=== PATIENT | male | born 1965 | race Caucasian/White ===

== ENCOUNTER 2016-09-19 15:10 | Emergency (ER) | payer OTHER ==
[~2016-09-19] VITALS: Ht 182.9 cm; Wt 90.7 kg
[~2016-09-19 15:10] MED LIST: IBUP-1619 PO; METH5TAB2 PO; QUET400T PO
[2016-09-19 15:18] VITALS: BP 114/77
== END 2016-09-19 15:38 | disposition home or self-care (01) ==
LOC: ER 15:12
DX: R21 Rash and other nonspecific skin eruption (principal); F20.9 Schizophrenia, unspecified; F17.200 Nicotine dependence, unspecified, uncomplicated; I10 Essential (primary) hypertension
CPT/HCPCS: 99283; A4606; Z7610

== ENCOUNTER 2016-09-27 08:05 | Emergency (ER) | payer OTHER ==
[~2016-09-27] VITALS: Ht 182.9 cm; Wt 95.3 kg
[2016-09-27 08:05] VITALS: BP 160/96
== END 2016-09-27 09:00 | disposition home or self-care (01) ==
LOC: ER 08:06
DX: Z48.00 Encounter for change or removal of nonsurgical wound dressing (principal); F20.9 Schizophrenia, unspecified; F17.200 Nicotine dependence, unspecified, uncomplicated; I10 Essential (primary) hypertension
CPT/HCPCS: A4606; Z7502; Z7610

== ENCOUNTER 2016-09-28 16:32 | Emergency (ER) | payer OTHER ==
[~2016-09-28] VITALS: Ht 177.8 cm; Wt 95.3 kg
[2016-09-28 16:36] VITALS: BP 133/79
== END 2016-09-28 17:40 | disposition left against medical advice (07) ==
LOC: ER 16:34
DX: S61.402D Unspecified open wound of left hand, subsequent encounter (principal); S61.401D Unspecified open wound of right hand, subsequent encounter; I10 Essential (primary) hypertension; F20.9 Schizophrenia, unspecified; F17.200 Nicotine dependence, unspecified, uncomplicated; Z59.0 Homelessness; X58.XXXD Exposure to other specified factors, subsequent encounter
CPT/HCPCS: A4606; Z7502; Z7610

== ENCOUNTER 2016-10-28 20:10 | Emergency (ER) | payer OTHER ==
[~2016-10-28] VITALS: Ht 185.4 cm; Wt 99.8 kg
--- NOTE | 2016-10-28 20:22 | NUR ---
CALLED PT IN [place], NO REPONSE
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
--- NOTE | 2016-10-28 23:10 | NUR ---
DR THOMAS AT BEDSIDE FOR EVAL.
[2016-10-28] MEDS ORDERED: IBUPROFEN 600 MG TABLET PO ONE ×2 (23:30→23:38)
--- NOTE | 2016-10-29 01:01 | NUR ---
Emery melchor in ED - 10/29/16 at 0102 by FEDER[place] Patient eloped from [facility]. DARION BEAVER notified.
--- NOTE | 2016-10-29 01:02 | NUR ---
PATIENT LEFT WITHOUT DC PAPER WORK. NAD NOTED,
[2016-10-29 01:05] VITALS: BP 132/77
== END 2016-10-29 01:05 | disposition home or self-care (01) ==
LOC: ER 20:14
DX: S20.212A Contusion of left front wall of thorax, initial encounter (principal); I10 Essential (primary) hypertension; F20.9 Schizophrenia, unspecified; F17.210 Nicotine dependence, cigarettes, uncomplicated; X58.XXXA Exposure to other specified factors, initial encounter; Y92.89 Other specified places as the place of occurrence of the external cause; Y93.89 Activity, other specified; Y99.8 Other external cause status
CPT/HCPCS: 71020; 99284; A4606; Z7610

== ENCOUNTER 2016-11-21 19:25 | Emergency (ER) | payer OTHER ==
[~2016-11-21] VITALS: Ht 175.3 cm; Wt 65.8 kg
[2016-11-21 20:03] VITALS: BP 160/98
[2016-11-21] MEDS ORDERED: QUETIAPINE FUMARATE 100 MG TABLET PO SCH (20:30)
== END 2016-11-21 20:30 | disposition home or self-care (01) ==
LOC: ER 19:28
DX: Z76.0 Encounter for issue of repeat prescription (principal); F20.9 Schizophrenia, unspecified; I10 Essential (primary) hypertension; F17.200 Nicotine dependence, unspecified, uncomplicated
CPT/HCPCS: A4606; Z7610

== ENCOUNTER 2016-11-25 23:03 | Emergency (ER) | payer OTHER ==
[~2016-11-25] VITALS: Ht 185.4 cm; Wt 104.3 kg
[2016-11-25 23:16] VITALS: BP 154/91
[2016-11-26] MEDS ORDERED: HYDROCODONE/APAP 5/325MG 1 EACH TABLET ONE (00:59)
[2016-11-26] MEDS ORDERED: HYDROCODONE/APAP 5/325MG 1 EACH TABLET PO ONE (01:00)
[2016-11-26] MEDS ORDERED: QUETIAPINE FUMARATE 100 MG TABLET PO SCH (01:00)
[2016-11-26] MEDS ORDERED: QUETIAPINE FUMARATE 100 MG TABLET ONE ×2 (01:03→01:07)
[2016-11-26] MEDS ORDERED: HYDROMORPHONE INJ 2 MG/ML DISP.SYRIN ONE (01:09)
--- NOTE | 2016-11-26 01:30 | NUR ---
DILAUDID 2 MG IV NON-ADMINISTERED. WRONG PYXIS REMOVAL (MEDICATION WAS INTENDED FOR ANOTHER PT). MEDICATION WASTED, CREDITED & WITNESSED. WENDY FERNANDEZ MADE AWARE.
--- NOTE | 2016-11-26 01:30 | NUR ---
SEROQUEL ORDERED ON PT. ED PYXIS DOES NOT CARRY SEROQUEL 400 MG, WENT TO [facility] TO GET MEDICATION FOR PT. REBECCA TREVIÑO ACCIDENTLY PULLED DILAUDID 2 MG IV. REBECCA TREVIÑO NOTIFIED ABOUT ACCIDENTAL PULL FROM [facility] PYXIS
== END 2016-11-26 01:38 | disposition home or self-care (01) ==
LOC: ER 23:04
DX: F20.9 Schizophrenia, unspecified (principal); I10 Essential (primary) hypertension; F17.200 Nicotine dependence, unspecified, uncomplicated
CPT/HCPCS: 99283; 99406; A4606; Z7610; J1170

== ENCOUNTER 2016-11-27 12:13 | Emergency (ER) | payer OTHER ==
[~2016-11-27] VITALS: Ht 182.9 cm; Wt 127.0 kg
[2016-11-27 12:19] VITALS: BP 145/82
== END 2016-11-27 12:37 | disposition home or self-care (01) ==
LOC: ER 12:16
DX: H66.91 Otitis media, unspecified, right ear (principal); I10 Essential (primary) hypertension; F20.9 Schizophrenia, unspecified; F17.200 Nicotine dependence, unspecified, uncomplicated
CPT/HCPCS: 99283; A4606; Z7610

== ENCOUNTER 2016-12-25 14:57 | Emergency (ER) | payer OTHER ==
[~2016-12-25] VITALS: Ht 182.9 cm; Wt 104.3 kg
[2016-12-25 15:14] VITALS: BP 112/81
== END 2016-12-25 16:23 | disposition home or self-care (01) ==
LOC: ER 15:01
DX: Z76.0 Encounter for issue of repeat prescription (principal); I10 Essential (primary) hypertension; F20.9 Schizophrenia, unspecified; F17.200 Nicotine dependence, unspecified, uncomplicated; Z59.0 Homelessness; Z48.00 Encounter for change or removal of nonsurgical wound dressing
CPT/HCPCS: 99283; A4606; Z7610

== ENCOUNTER 2017-01-10 10:29 | Emergency (ER) | payer OTHER ==
[~2017-01-10] VITALS: Ht 182.9 cm; Wt 104.3 kg
--- NOTE | 2017-01-10 10:29 | NUR ---
[facility] to ER for medical and psych clearance . ADMITS USING [facility] TODAY. PLACED ON MONITOR. AYLIN GALLEGOS VSS. AWAITING MD ORDER
[2017-01-10] MEDS ORDERED: OLANZAPINE 10 MG VIAL IM ONE ×2 (10:36→11:00)
--- NOTE | 2017-01-10 11:20 | NUR ---
PUMP TECHNICIAN AT BEDSIDE BLOOD SAMPLE COLLECTED
--- NOTE | 2017-01-10 11:33 | NUR ---
URINE SAMPLE COLLECTED SENT TO LAB
[2017-01-10 11:34] LABS: BASOPHILS % (AUTO) 0.3 % (0.0-2.0); EOSINOPHILS % (AUTO) 0.3 % (0.0-6.0); HEMATOCRIT 36 % (39-51); HEMOGLOBIN 12.7 g/dL (13.5-17.5); LYMPHOCYTES % (AUTO) 26.9 % (20.0-44.0); MEAN CORPUSCULAR HEMOGLOBIN 33 PG (26.0-33.0); MEAN CORPUSCULAR HGB CONC 35 g/dl (31.0-36.0); MEAN CORPUSCULAR VOLUME 95 fL (80-96); MONOCYTES # (AUTO) 0.3 /CMM (0.1-1.30); MONOCYTES % (AUTO) 7.8 % (2.0-12.0); NEUTROPHILS # (AUTO) 2.3 /CMM (1.8-8.9); NEUTROPHILS % (AUTO) 64.7 % (43.0-81.0); PLATELET COUNT (AUTO) 122 /CMM (150-450); RED BLOOD CELL COUNT(AUTO) 3.85 MIL/uL (4.5-6.0); WHITE BLOOD COUNT (AUTO) 3.6 K/uL (4.3-11.0)
[2017-01-10 11:39] LABS: BILIRUBIN,URINE SMALL (NEGATIVE); BLOOD, URINE Negative Ery/uL (NEGATIVE); KETONES,URINE Negative (NEGATIVE); LEUKOCYTE ESTERASE ,URINE Negative (NEGATIVE); NITRITE, URINE Negative (NEGATIVE); PH,URINE 6.5 (5.0-8.0); PROTEIN,URINE 30 mg/dl (NEGATIVE); UGLUCOSE Negative (NEGATIVE)
[2017-01-10 11:42] LABS: APPEARANCE,URINE Hazy (CLEAR); COLOR,URINE Dark Yellow (YELLOW)
[2017-01-10 11:46] LABS: CALCIUM, SERUM 9.1 mg/dL (8.5-10.1); CARBON DIOXIDE 28 mmol/L (21-32); CHLORIDE 105 mmol/L (98-107); CREATININE 0.9 mg/dL (0.6-1.3); GLUCOSE 111 mg/dL (74-106); POTASSIUM 4.2 mmol/L (3.5-5.1); SODIUM SERUM 140 mmol/L (136-145); UREA NITROGEN, BLOOD 18 mg/dL (7-18)
[2017-01-10 11:51] LABS: BACTERIA,URINE None seen /HPF (None Seen); MUCUS,URINE Few /LPF (None Seen); SPERM,URINE Present /HPF (None Seen); SQUAMOUS EPITHELIAL CELL,UR Few /HPF (None Seen)
[2017-01-10 11:51] LABS: ALANINE AMINOTRANSFERASE 19 U/L (12-78); ALBUMIN 4.1 g/dL (3.4-5.0); ALCOHOL, BLOOD < 3 mg/dL (0-0); ALKALINE PHOSPHATASE 56 U/L (46-116); ASPARTATE AMINOTRANSFERASE 20 U/L (15-37); BILIRUBIN,DIRECT 0.2 mg/dL (0.0-0.2); BILIRUBIN,TOTAL 0.7 mg/dL (0.2-1.0); SALICYLATE 6.1 mg/dL (2.8-20.0); TOTAL PROTEIN, SERUM 7.6 g/dL (6.4-8.2)
[2017-01-10 11:52] LABS: ACETAMINOPHEN 0 ug/ml (10-30)
[2017-01-10] MEDS ORDERED: HALOPERIDOL LACTATE INJ 5 MG/ML VIAL ONE (11:58)
[2017-01-10] MEDS ORDERED: LORAZEPAM INJ 2 MG/ML VIAL ONE (11:59)
--- NOTE | 2017-01-10 12:00 | NUR ---
CALLED JESSICA FOR PSYCH EVAL, ETA WITHIN THE HOUR
[2017-01-10] MEDS ORDERED: HALOPERIDOL LACTATE INJ 5 MG/ML VIAL IM ONE (12:30)
[2017-01-10] MEDS ORDERED: LORAZEPAM INJ 2 MG/ML VIAL IM ONE (12:30)
--- NOTE | 2017-01-10 13:38 | NUR ---
PT SEEN AND EVALUATED BY JESSICA FERNANDEZ PET TEAM BIOPHYSICS TEACHER
[2017-01-10 13:39] VITALS: BP 158/100
--- NOTE | 2017-01-10 13:39 | NUR ---
PT. VERBALIZED UNDERSTANDING OF AFTERCARE INSTRUCTIONS.Patient discharged to home in stable condition. Written and verbal after care instructions given. Patient verbalizes understanding of instruction.(pt. ambulatory with a steady gait
== END 2017-01-10 13:40 | disposition home or self-care (01) ==
LOC: ER 10:31
DX: F15.10 Other stimulant abuse, uncomplicated (principal); F20.9 Schizophrenia, unspecified; F29 Unspecified psychosis not due to a substance or known physiological condition; S61.409A Unspecified open wound of unspecified hand, initial encounter; K46.9 Unspecified abdominal hernia without obstruction or gangrene; G89.29 Other chronic pain; I10 Essential (primary) hypertension; F17.200 Nicotine dependence, unspecified, uncomplicated; Z59.0 Homelessness; X58.XXXA Exposure to other specified factors, initial encounter; Y93.89 Activity, other specified; Y92.89 Other specified places as the place of occurrence of the external cause; Y99.8 Other external cause status
CPT/HCPCS: 36415; 80048; 80076; 80305; 80329; 81001; 85025; 96372 ×3; 99284; A4606; G0480 ×2; J1630; J2060; J3490; Z7610; 81000-TC

== ENCOUNTER 2017-08-11 09:34 | Emergency (ER) | payer OTHER ==
[~2017-08-11] VITALS: Ht 185.4 cm; Wt 74.8 kg
[~2017-08-11 09:34] MED LIST changes: -IBUP-1619 PO; +IBUP-2269 PO
[2017-08-11 10:20] LABS: APPEARANCE,URINE Cloudy (CLEAR); BILIRUBIN,URINE SMALL (NEGATIVE); BLOOD, URINE Negative Ery/uL (NEGATIVE); KETONES,URINE Trace (NEGATIVE); LEUKOCYTE ESTERASE ,URINE Trace (NEGATIVE); NITRITE, URINE Negative (NEGATIVE); PROTEIN,URINE Trace mg/dl (NEGATIVE); UGLUCOSE Negative (NEGATIVE)
[2017-08-11 10:22] LABS: COLOR,URINE Dark Yellow (YELLOW)
[2017-08-11 10:29] LABS: BACTERIA,URINE None seen /HPF (None Seen); RBC,URINE 0-2 /HPF (0-2); SQUAMOUS EPITHELIAL CELL,UR Few /HPF (None Seen); WBC,URINE 0-3 /HPF (0-3)
[2017-08-11 10:30] LABS: URINE AMORPHOUS PHOSPHATES Many /HPF (None Seen)
[2017-08-11 10:59] VITALS: BP 123/80
== END 2017-08-11 11:04 ==
LOC: ER 09:38
DX: R30.0 Dysuria (principal); L98.8 Other specified disorders of the skin and subcutaneous tissue; G89.29 Other chronic pain; I10 Essential (primary) hypertension; F20.9 Schizophrenia, unspecified; F17.200 Nicotine dependence, unspecified, uncomplicated; Z59.0 Homelessness; Z86.19 Personal history of other infectious and parasitic diseases
CPT/HCPCS: 81001; 99283; A4606; A6402; A6403; Z7610; 81000-TC

== ENCOUNTER 2018-11-07 20:02 | Emergency (ER) | payer OTHER ==
--- NOTE | 2018-11-07 20:20 | NUR ---
CALLED PT'S NAME THREE TIMES, NO REPONSE. WILL TRY AGAIN AT A LATER TIME
--- NOTE | 2018-11-07 20:49 | NUR ---
CALLED PT'S NAME THREE TIMES, NO REPONSE. WILL TRY AGAIN AT A LATER TIME
--- NOTE | 2018-11-07 21:01 | NUR ---
CALLED PTS NAME, NO RESPONSE. PT LEFT BEFORE TRIAGE ASSESSMENT.
== END 2018-11-07 21:03 | disposition left against medical advice (07) ==
LOC: ER 20:05
DX: Z53.21 Procedure and treatment not carried out due to patient leaving prior to being seen by health care provider (principal)